=== PATIENT | female | born 1950 ===

== ENCOUNTER → 2023-12-07 | Outpatient (CLI) | payer BC ==
[2023-12-07 15:23] LABS: Basophils # (auto) 0.1 10 ^3/uL (0-0.2); Basophils % (auto) 1.5 % (0.0-2.0); Eosinophils # (auto) 0.1 10 ^3/uL (0-0.8); Eosinophils % (auto) 2.1 % (0.0-7.0); Hematocrit 46.7 % (36.0-46.0); Hemoglobin 15.5 g/dL (12.2-16.2); Lymphocytes # (auto) 2.5 10 ^3/uL (0.4-5.4); Lymphocytes % (auto) 44.5 % (10.0-50.0); Mean Corpuscular Hemoglobin 30.4 pg (28.0-32.0); Mean Corpuscular Hgb Conc. 33.1 g/dL (32.0-36.0); Mean Corpuscular Volume 91.8 fL (80.0-100.0); Monocytes # (auto) 0.4 10 ^3/uL (0-1.3); Monocytes % (auto) 7.8 % (0.0-12.0); Neutrophils # (auto) 2.5 10 ^3/uL (1.6-8.6); Neutrophils % (auto) 44.1 % (37.0-80.0); Nucleated Red Blood Cells % 0.1 %; Red Blood Cells 5.09 10^6/uL (4.0-5.20); Red Cell Distribution Width 13.4 % (11.8-14.3); White Blood Cell 5.7 10^3/uL (4.4-10.8)
[2023-12-07 15:44] LABS: Urine Bacteria NONE SEEN /hpf (None Seen); Urine Blood Negative /uL (Negative); Urine Clarity Clear (Clear); Urine Color Yellow (Yellow); Urine Mucus FEW (None Seen); Urine Protein, UAD 1+ (Negative); Urine Specific Gravity 1.028 (1.001-1.035); Urine Urobilinogen Normal (Negative); Urine WBC 53 /hpf (0 - 5); Urine pH 5.5 (5.0-8.0)
[2023-12-07 16:11] LABS: Alanine Aminotransferase 41 U/L (7-40); Albumin 4.2 g/dL (3.2-4.8); Alkaline Phosphatase 105 U/L (46-116); Anion Gap 4 (5-15); Aspartate Aminotransferase 32 U/L (13-40); BUN/Creatinine Ratio 9.3 (10.0-20.0); Bilirubin, Total 0.6 mg/dL (0.2-1.0); Blood Urea Nitrogen 11 mg/dL (9-23); Calcium 9.7 mg/dL (8.5-10.1); Carbon Dioxide 32 mmol/L (20-30); Chloride 101 mmol/L (98-107); Cholesterol 239 mg/dL (< 200); Glucose 222 mg/dL (74-106); HDL Cholesterol 57 mg/dL (40-59); LDL Cholesterol 158 mg/dL (< 100); Potassium 4.1 mmol/L (3.5-5.1); Sodium 137 mmol/L (136-145); Total Protein 7.1 g/dL (5.7-8.2); Triglycerides 187 mg/dL (< 150)
== END | disposition home or self-care (01) ==
LOC: LAB 15:06
PROVIDERS: ATTEND Internal Medicine
DX: I10 Essential (primary) hypertension (principal); E11.9 Type 2 diabetes mellitus without complications; E03.9 Hypothyroidism, unspecified; J32.9 Chronic sinusitis, unspecified
CPT/HCPCS: 36415; 80053; 80061; 81001; 82043; 82274; 82306; 83036; 84439; 84443; 85025

== ENCOUNTER 2023-12-26 15:19 | Inpatient (IN) | payer BC ==
[~2023-12-26] VITALS: Ht 154.9 cm; Wt 81.9 kg
[2023-12-26 15:30] VITALS: BP 165/99; PULSE 75; RESP 19; TEMP 98; O2SAT 95
[2023-12-26 15:59] VITALS: BP 165/99; PULSE 75; RESP 19; TEMP 98; O2SAT 95
[2023-12-26] MEDS ORDERED: NITROGLYCERIN 0.4 MG SL TAB SL PRN (16:00)
[2023-12-26] MEDS ORDERED: MORPHINE SULFATE INJ 2 MG/ml SYRG IV PRN (16:00)
[2023-12-26] MEDS: HYDROcodone-ACET 5/325MG TAB PO PRN (16:40)
[2023-12-26] MEDS: PANTOPRAZOLE 40 MG TAB PO ONE (16:40)
[2023-12-26] MEDS: cefTRIAXone 1GM/50ML D5W 50 ML IV ONE (16:43)
[2023-12-26] MEDS: SODIUM CHLORIDE 0.9% 1,000 ML IV SCH (16:43)
[2023-12-26] MEDS ORDERED: BIMA0.01 EACHEYE (16:46)
[2023-12-26] MEDS ORDERED: BENZ100C97 PO (16:46)
[2023-12-26] MEDS ORDERED: LOSA-534 PO (16:46)
[2023-12-26] MEDS ORDERED: IPRA0.03 (16:46)
[2023-12-26] MEDS ORDERED: LEVO150T10 PO (16:46)
[2023-12-26] MEDS ORDERED: AMLO1TAB22 PO (16:46)
[2023-12-26] MEDS ORDERED: PANT1INJ3 PO (16:46)
[2023-12-26] MEDS ORDERED: GLIP5TAB21 PO (16:46)
[2023-12-26 16:50] VITALS: BP 178/76; PULSE 60; RESP 19; TEMP 98.1; O2SAT 96
[2023-12-26] MEDS: hydrALAZINE HCL 20 MG/ML VL IV PRN (17:26)
[2023-12-26 17:37] LABS: Basophils # (auto) 0.1 10 ^3/uL (0-0.2); Basophils % (auto) 0.9 % (0.0-2.0); Eosinophils # (auto) 0.1 10 ^3/uL (0-0.8); Eosinophils % (auto) 1.8 % (0.0-7.0); Hematocrit 45.8 % (36.0-46.0); Hemoglobin 15.3 g/dL (12.2-16.2); Lymphocytes # (auto) 2.6 10 ^3/uL (0.4-5.4); Lymphocytes % (auto) 41.7 % (10.0-50.0); Mean Corpuscular Hemoglobin 30.5 pg (28.0-32.0); Mean Corpuscular Hgb Conc. 33.5 g/dL (32.0-36.0); Mean Corpuscular Volume 91.1 fL (80.0-100.0); Monocytes # (auto) 0.5 10 ^3/uL (0-1.3); Monocytes % (auto) 8.1 % (0.0-12.0); Neutrophils % (auto) 47.5 % (37.0-80.0); Nucleated Red Blood Cells % 0.2 %; Red Blood Cells 5.03 10^6/uL (4.0-5.20); Red Cell Distribution Width 13.2 % (11.8-14.3); White Blood Cell 6.3 10^3/uL (4.4-10.8)
[2023-12-26 17:44] LABS: Alanine Aminotransferase 51 U/L (7-40); Alkaline Phosphatase 98 U/L (46-116); Anion Gap 4 (5-15); Aspartate Aminotransferase 42 U/L (13-40); BUN/Creatinine Ratio 11.5 (10.0-20.0); Bilirubin, Total 0.6 mg/dL (0.2-1.0); Blood Urea Nitrogen 12 mg/dL (9-23); Calcium 9.4 mg/dL (8.5-10.1); Carbon Dioxide 28 mmol/L (20-30); Chloride 104 mmol/L (98-107); Glucose 219 mg/dL (74-106); Potassium 4.2 mmol/L (3.5-5.1); Sodium 136 mmol/L (136-145); Total Protein 7.1 g/dL (5.7-8.2)
[2023-12-26] MEDS: MORPHINE SULFATE INJ 2 MG/ml SYRG IV PRN (17:59)
[2023-12-26 21:00] VITALS: BP 137/49; PULSE 84; RESP 18; TEMP 98; O2SAT 98
[2023-12-26 22:00] LABS: Urine Bacteria None Seen /hpf (None Seen)
[2023-12-26 22:25] LABS: Urine Blood Negative /uL (Negative); Urine Clarity Clear (Clear); Urine Color Yellow (Yellow); Urine Hyaline Cast FEW /lpf (0 - 2); Urine Mucus FEW (None Seen); Urine Protein, UAD TRACE (Negative); Urine Specific Gravity 1.028 (1.001-1.035); Urine Urobilinogen Normal (Negative); Urine WBC 9 /hpf (0 - 5); Urine pH 5.5 (5.0-9.0)
[2023-12-27 01:00] VITALS: BP 142/76; PULSE 67; RESP 16; TEMP 98.6; O2SAT 97
[2023-12-27 05:00] VITALS: BP 133/65; PULSE 77; RESP 17; TEMP 98.2; O2SAT 96
[2023-12-27] MEDS: LEVOTHYROXINE SODIUM 112 MCG TAB PO SCH (06:39)
[2023-12-27 08:00] VITALS: BP 137/61; PULSE 70; RESP 18; TEMP 98; O2SAT 95
[2023-12-27] MEDS: cefTRIAXone 1GM/50ML D5W 50 ML IV SCH (09:00)
[2023-12-27 09:03] LABS: Hepatitis B Surface Antigen Negative (Negative)
[2023-12-27 09:24] LABS: Hepatitis C Antibody Negative (Negative)
[2023-12-27] MEDS: amLODIPine BESYLATE 5 MG TAB PO SCH (10:00)
[2023-12-27] MEDS: PANTOPRAZOLE 40 MG TAB PO SCH (10:00)
[2023-12-27] MEDS: LOSARTAN POTASSIUM 50 MG TAB PO SCH (10:00)
== END 2023-12-27 09:40 | disposition left against medical advice (07) | DRG 392 ==
LOC: WEST WING 15:19 → UNDOADMIN 15:19 → WEST WING 15:50
PROVIDERS: ADMIT Internal Medicine Pulmonary Disease; ATTEND Internal Medicine Pulmonary Disease
DX: R10.9 Unspecified abdominal pain (principal); N39.0 Urinary tract infection, site not specified; E11.9 Type 2 diabetes mellitus without complications; I10 Essential (primary) hypertension; Z53.29 Procedure and treatment not carried out because of patient's decision for other reasons; E03.9 Hypothyroidism, unspecified; Z79.4 Long term (current) use of insulin; Z83.3 Family history of diabetes mellitus; Z82.49 Family history of ischemic heart disease and other diseases of the circulatory system; Z79.899 Other long term (current) drug therapy
CPT/HCPCS: 36415; 70486; 71045; 74176; 80053; 81001; 85025; 86803; 87086; 87088; 87186; 87340; G0378